=== PATIENT | female | born 1950 | race Caucasian/White ===

== ENCOUNTER → 2016-08-16 17:22 | Outpatient (CLI) | payer BC ==
[2014-06-04 10:39] VITALS: BMI 28.4
[~2016-08-16 17:22] MED LIST: CARAFATE1 G PO; HYDROCODONE-APA1 TAB PO; LOTENSIN40 MG PO; MIRALAX17 GM PO; PROTONIX40 MG PO; SOMA350 MG PO; ZOFRAN ODT4 MG/UDTAB PO
== END | disposition home or self-care (01) ==
LOC: D.MAMMO 10:00
DX: Z12.31 Encounter for screening mammogram for malignant neoplasm of breast (principal)

== ENCOUNTER → 2016-11-30 13:39 | Outpatient (CLI) | payer BC ==
[2014-06-04 10:39] VITALS: BMI 28.4
== END | disposition home or self-care (01) ==
LOC: D.CT 13:39
DX: R91.8 Other nonspecific abnormal finding of lung field (principal)

== ENCOUNTER → 2017-06-02 14:05 | Outpatient (CLI) | payer BC, MEDICARE ==
[2014-06-04 10:39] VITALS: BMI 28.4
== END | disposition home or self-care (01) ==
LOC: D.CT 14:05
DX: R93.8 Abnormal findings on diagnostic imaging of other specified body structures (principal)

== ENCOUNTER 2018-04-02 09:31 | Emergency (ER) | payer BC, MEDICARE ==
[~2018-04-02] VITALS: Ht 154.9 cm; Wt 65.9 kg
[2018-04-02 09:33] VITALS: Ht 154.9 cm; Wt 65.9 kg
[2018-04-02] MEDS ORDERED: [UNRECOGNIZED DRUG - OTHER] (09:37)
[2018-04-02 10:13] LABS: APPEARANCE HAZY (CLEAR); COLOR YELLOW (YELLOW)
[2018-04-02 10:14] LABS: BACTERIA MANY /hpf (NONE SEEN); BILIRUBIN NEGATIVE (NEGATIVE); GLUCOSE NEGATIVE (NEGATIVE); KETONE NEGATIVE (NEGATIVE); NITRITE NEGATIVE (NEGATIVE); PROTEIN NEGATIVE (NEGATIVE); RED CELLS - URINE 0-5 /hpf (0-5); WHITE CELLS - URINE OCC /hpf (0-5)
[2018-04-02 10:15] LABS: AMORPHOUS SEDIMENT <1+ /lpf (NONE SEEN); MUCUS <1+ /lpf (NONE SEEN)
[2018-04-02 10:20] LABS: BASOPHILS 0.1 % (0-2); EOSINOPHILS 0.8 % (0-7); HEMATOCRIT 49.2 % (36.0-48.0); HEMOGLOBIN 16.7 g/dL (12-16); IMMATURE GRANULOCYTES 0.3 % (0-5); LYMPHOCYTES 14.9 % (15-50); MCH 29.7 pg (26.0-34.0); MCHC 33.9 g/dL (31.0-37.0); MCV 87.5 fL (80.0-100.0); MEAN PLATELET VOLUME 9.9 fL (7.4-10.4); MONOCYTES 7.3 % (2-11); NEUTROPHILS 76.6 % (40-80); PLATELET COUNT 298 10x3/uL (130-400); RBC 5.62 10x6/uL (4.00-5.40); RDW 13.3 % (11.5-14.5); WBC 16.9 10x3/uL (4.8-10.8)
[2018-04-02 10:34] LABS: ALBUMIN 3.5 g/dL (3.4-5.0); ALKALINE PHOSPHATASE 122 U/L (46-116); ALT (SGPT) 48 U/L (10-68); BILIRUBIN - TOTAL 0.73 mg/dL (0.2-1.3); CALC OSMOLALITY 272 mosm/kg (275-300); CALCIUM 8.9 mg/dL (8.5-10.1); CARBON DIOXIDE 25.6 mmol/L (21.0-32.0); CHLORIDE - SERUM 100 mmol/L (98-107); CREATININE - SERUM 0.9 mg/dL (0.6-1.3); GLUCOSE 109 mg/dL (74-106); POTASSIUM - SERUM 4.4 mmol/L (3.5-5.1); PROTEIN - SERUM 8.3 g/dL (6.4-8.2); SODIUM 136 mmol/L (136-145); UREA NITROGEN 13 mg/dL (7-18); eGFR NON AFRICAN AMERICAN 66 mL/min (90-120)
[2018-04-02 10:37] LABS: LIPASE 91 U/L (73-393); TROPONIN-I < 0.017 ng/mL (0.000-0.060)
[2018-04-02 13:58] VITALS: BP 169/86
== END 2018-04-02 14:04 | disposition home or self-care (01) ==
LOC: D.ER 09:31
PROVIDERS: Family Medicine
DX: K52.9 Noninfective gastroenteritis and colitis, unspecified (principal); I10 Essential (primary) hypertension

== ENCOUNTER 2018-05-22 10:52 | Emergency (ER) | payer BC, MEDICARE ==
[2018-05-22 11:52] LABS: BASOPHILS 0.2 % (0-2); EOSINOPHILS 1.5 % (0-7); HEMOGLOBIN 16.5 g/dL (12-16); IMMATURE GRANULOCYTES 0.2 % (0-5); LYMPHOCYTES 21.5 % (15-50); MCH 29.6 pg (26.0-34.0); MCHC 33.7 g/dL (31.0-37.0); MCV 87.8 fL (80.0-100.0); MEAN PLATELET VOLUME 10.3 fL (7.4-10.4); MONOCYTES 7.9 % (2-11); NEUTROPHILS 68.7 % (40-80); PLATELET COUNT 320 10x3/uL (130-400); RBC 5.58 10x6/uL (4.00-5.40); RDW 13.6 % (11.5-14.5); WBC 12.4 10x3/uL (4.8-10.8)
[2018-05-22 12:10] LABS: ALBUMIN 3.9 g/dL (3.4-5.0); ALKALINE PHOSPHATASE 101 U/L (46-116); ALT (SGPT) 15 U/L (10-68); BILIRUBIN - TOTAL 0.44 mg/dL (0.2-1.3); CALC OSMOLALITY 269 mosm/kg (275-300); CALCIUM 9.5 mg/dL (8.5-10.1); CARBON DIOXIDE 28.3 mmol/L (21.0-32.0); CHLORIDE - SERUM 99 mmol/L (98-107); CREATININE - SERUM 0.8 mg/dL (0.6-1.3); GLUCOSE 94 mg/dL (74-106); POTASSIUM - SERUM 4.4 mmol/L (3.5-5.1); PROTEIN - SERUM 9.1 g/dL (6.4-8.2); SODIUM 135 mmol/L (136-145); UREA NITROGEN 13 mg/dL (7-18); eGFR NON AFRICAN AMERICAN 76 mL/min (90-120)
[2018-05-22 12:10] LABS: APPEARANCE CLEAR (CLEAR); BILIRUBIN NEGATIVE (NEGATIVE); COLOR YELLOW (YELLOW); EPITHELIAL CELLS OCC /hpf (0-5); GLUCOSE NEGATIVE (NEGATIVE); KETONE NEGATIVE (NEGATIVE); NITRITE NEGATIVE (NEGATIVE); PROTEIN NEGATIVE (NEGATIVE); RED CELLS - URINE OCC /hpf (0-5); SPECIFIC GRAVITY 1.025 (1.005-1.020); UROBILINOGEN NORMAL (NORMAL); WHITE CELLS - URINE NSEEN /hpf (0-5)
[2018-05-22 12:12] LABS: AMYLASE - SERUM 102 U/L (25-115); LIPASE 129 U/L (73-393)
[2018-05-22 12:14] LABS: TROPONIN-I < 0.017 ng/mL (0.000-0.060)
== END 2018-05-22 14:52 | disposition home or self-care (01) ==
LOC: D.ER 10:52
PROVIDERS: Family Medicine
DX: M54.5 Low back pain (principal); R10.32 Left lower quadrant pain; Z87.19 Personal history of other diseases of the digestive system; I10 Essential (primary) hypertension

== ENCOUNTER 2018-10-23 08:00 | Outpatient (CLI) | payer BC, MEDICARE ==
[2018-05-22 11:09] VITALS: BMI 28.4
[~2018-10-23 08:00] MED LIST changes: +[UNRECOGNIZED DRUG - OTHER]
== END 2018-10-23 09:00 | disposition home or self-care (01) ==
LOC: D.MAMMO 08:00
PROVIDERS: ATTEND Emergency Medicine
DX: Z12.31 Encounter for screening mammogram for malignant neoplasm of breast (principal)

== ENCOUNTER → 2019-02-13 11:56 | Outpatient (CLI) | payer BC, MEDICARE ==
[2018-05-22 11:09] VITALS: BMI 28.4
== END | disposition home or self-care (01) ==
LOC: D.HCCARDIO 11:56
PROVIDERS: ATTEND Internal Medicine Cardiovascular Disease
DX: I20.9 Angina pectoris, unspecified (principal)

== ENCOUNTER 2019-05-28 11:24 | Outpatient (CLI) | payer BC, MEDICARE ==
[~2019-05-28] VITALS: Ht 154.9 cm; Wt 68.2 kg
--- NOTE | ~2019-05-28 | HEMODYNAMI ---
PATIENT:DANE SANTIAGO MEDICAL RECORD: [id number] : 54 LOCATION:[facility] ADMISSION DATE: 05/28/19 Generatedon:05/28/201914:08 Patient name: DANE SANTIAGO Patient #: [id number] SSN: [id number] : 1950 Date of study: 05/28/2019 Page: Of Hemodynamic Procedure Report Patient Data Patient Demographics Procedure consent was obtained First Name: DANE Gender: Female Last Name: PAMELA : 1950 Middle Initial: D Age: 69 year(s) Patient #: [id number] Race: Unknown SSN: [id number] Additional ID: [id number] Contact details [address]: [address] [place] [address] TRAIL State: [place] City: [place] Zip code: [address] Past Medical History Allergies Allergen Reaction Date Comments Reported Other allergy 05/28/2019 See List Admission Admission Data Admission Date: 05/28/2019 Admission Time: 11:24 Arrival Date: 05/28/2019 Arrival Time: 0:00 Admit Source: Other Insurance Payor: Private health insurance, Medicare [facility] #: [id number] Height (in.): 60.63 BSA: 1.66 (m2) Height (cm.): 154 BMI: 28.67 (kg/m2) Weight (lbs.): 149.92 Weight (kg.): 68 Lab Results Lab Result Date: 05/28/2019 Lab Result Time: 0:00 Biochemistry Name Units Result Min Max BUN mg/dl 13 --(--*-)-- 7 18 Creatinine mg/dl 0.6 --(*---)-- 0.6 1.3 CBC Name Units Result Min Max Hemoglobin g/dl 15.5 --(-*--)-- 13.5 17.5 Procedure Procedure Types Cath Procedure Diagnostic Procedure LHC LHC w/Coronaries Sedation Charges Moderate Sedation up to 15 minutes Procedure Description Procedure Date Procedure Date: 05/28/2019 Procedure Start Time: 13:56 Procedure End Time: 14:06 Procedure Staff Name Function Jeremy Sánchez MD Performing Physician Ying Olivas RT Monitor Michael Mohamud RN Nurse Sydney Maldonado RT Scrub Indication Chest pain Dyspnea Procedure Data Cath Procedure Fluoroscopy Diagnostic fluoroscopy Total fluoroscopy Time: 1.9 time: 1.9 min min Diagnostic fluoroscopy Total fluoroscopy dose: 398 dose: 398 mGy mGy Contrast Material Contrast Material Type Amount (ml) Isovue 300 51 Entry Location Entry Primary Successful Side Size Upsize Upsize Entry Closure Sandy ccessful Closure Location (Fr) 1 (Fr) 2 (Fr) Remarks Device Remarks Radial Right 6 Fr Mechanical artery Short Compression Estimated blood loss: 10 ml Diagnostic catheters Device Type Used For End Catheter Placement DIAGNOSTIC [place] 110cm 5 Procedure Fr catheter ([id number]) Procedure Complications No complications Procedure Medications Medication Administration Route Dosage 0.9% NaCl I.V. 100 ml/hr Oxygen etCO2 Nasal cannula 2 l/min Heparin Flush Bag added to field 2 bags (1000units/500ml NS) Bupivacaine 0.5% added to field 10 ml Radial Cocktail added to field 1 syringe (Verapamil 2mg/Nitro 400mcg/Heparin 1500units) Versed I.V. 2 mg Fentanyl I.V. 100 mcg Benadryl I.V. 50 mg Hemodynamics Rest BSA: 1.66 (m2) HGB: 15.5 (g/dl) O2 Consumption: Estimated: 162.22 (ml/min) O2 Co nsumption indexed: Estimated:97.72 (ml/min/m) Heart Rate: 83 (bpm) Pressure Samples Time Site Value (mmHg) Purpose Heart Use Rate(bpm) 14:01 LV 153/-6,9 Snapshot 83 14:01 AO 156/79(115) Pullback 83 14:01 LV 160/-8,15 Pullback 83 Gradients Valve Time Site 1 Site 2 Mean SEP/DFP Peak To Heart Use (mmHg) (sec/min) Peak Rate (mmHg) (bpm) Aortic 14:01 LV AO 9 14 4 83 160/-8,15 156/79(115) Calculations Valve P-P Mean Valve Index Valve Source Name Gradient Area Flow (cm2) Aortic 4 9 4 9 Snapshots Pre Cath Intra NCS Post Cath Vital Signs Time Heart Resp SPO2 etCO2 NIBP (mmHg) Rhythm Pain Sedation Rate (ipm) (%) (mmHg) Status Level (bpm) 13:49:55 85 17 95 39.5 147/122(139) NSR 0 (11) 10(A) , No pain 13:54:11 79 16 94 41 163/79(125) NSR 0 (11) 10(A) , No pain 13:58:31 84 11 96 40.3 176/85(120) NSR 0 (11) 10(A) , No pain 14:02:49 81 14 93 40.3 141/69(110) NSR 0 (11) 9(A) , No pain 14:07:05 83 13 93 40.3 149/76(134) NSR 0 (11) 9(A) , No pain Medications Time Medication Route Dose Verified Delivered Reason Notes Ef fectiveness by by 13:47:43 Benadryl I.V. 50 mg Michael Michael Per Lorigan Lorigan physician RN RN 13:47:43 0.9% NaCl I.V. 100 Michael Michael Per ml/hr Lorigan Lorigan physician RN RN 13:47:53 Oxygen etCO2 2 l/min Michael Michael for low Nasal Lorigan Lorigan 02 sats cannula RN RN 13:48:03 Heparin Flush added 2 bags Michael Michael used for Bag to Lorigan Lorigan procedure (1000units/500ml RN RN NS) 13:48:28 Bupivacaine 0.5% added 10 ml Michael Michael used for to Lorigan Lorigan procedure RN RN 13:48:40 Radial Cocktail added 1 Michael Michael used for (Verapamil to syringe Lorigan Lorigan procedure 2mg/Nitro RN RN 400mcg/Heparin 1500units) 13:57:56 Versed I.V. 2 mg Michael Michael for Lorigan Lorigan sedation RN RN 13:58:05 Fentanyl I.V. 100 mcg Michael Michael for Lorigan Lorigan sedation RN supervisor pole yard Log Time Note 13:33:52 Admit Source: Other 13:33:54 Arrival Date: 05/28/2019 12:00:00 AM 13:34:16 Insurance Payor : Private health insurance, Medicare 13:34:26 Patient Height : 60.63 inches 13:34:35 Patient Weight : 149.92 lbs 13:35:35 Lab Result : BUN 13 mg/dl 13:35:35 Lab Result : Hemoglobin 15.5 g/dl 13:35:35 Lab Result : Creatinine 0.6 mg/dl 13:35:45 Diagnostic Cath Status : Elective 13:36:23 Indication : Chest pain 13:36:28 Indication : Dyspnea 13:37:15 ACC Patient presents with Stable Angina CCS Anginal Class 2--Slight limitation of ordinary activity. 13:37:19 Procedure Status Elective Heart Cath (OP). 13:37:28 Michael Mohamud RN sent for patient. Start room use. 13:37:30 Time tracking: Regular hours (M-F 7:00 - 5:00) 13:37:35 Plan of Care:Hemodynamics will remain stable., Cardiac rhythm will remain stable., Comfort level will be maintained., Respiratory function will remain adequate., Patient/ family verbilizes understanding of procedure., Procedure tolerated without complication., Recovers from procedure without complications.. 13:37:41 Patient received from Pre/Post Procedure Room to [facility] [place] 2 Alert and oriented. Tansferred to table in Supine position. 13:37:44 Signed procedure consent form obtained from patient. 13:37:45 Warm blankets applied, and orly hugger turned on for patient comfort. 13:37:46 Correct patient and procedure confirmed by team. 13:37:47 ECG and BP/O2 sat monitors applied to patient. 13:38:13 H&P Date Dictated: 05/07/2019 Within 30 days and on chart., H&P Addendum completed by physician on day of procedure. (MUST COMPLETE FOR ALL OUTPATIENTS). 13:38:16 Pre-procedure instructions explained to patient. 13:38:21 Family in waiting room. 13:38:22 Patient NPO since Midnight. 13:38:35 Patient allergic to Other allergySee List 13:38:38 Is the patient allergic to Iodine/contrast media? No. 13:38:39 Was the patient premedicated? Yes 13:38:41 Is patient on blood thinner?No 13:38:46 Patient diabetic? No. 13:38:51 Snore? No 13:38:52 Sleep apnea? No 13:38:56 Dentures? No ? 13:39:05 Patient pain scale 0/10 .. 13:39:14 IV patent on arrival in left forearm with 0.9% NaCl at KVO. 13:39:21 Lab results completed and on chart. 13:39:26 Stress Test: yes; normal ? 13:39:30 Alarms reviewed by R. N. 13:39:34 Right groin area was prepped with chlora-prep and draped in sterile fashion 13:39:36 Sharps counted by scrub and verified by R.N. 13:47:43 Benadryl 50 mg I.V. was administered by Michael Mohamud RN; Per physician; Verbal order read back and verified. 13:47:43 0.9% NaCl 100 ml/hr I.V. was administered by Michael Mohamud RN; Per physician; Verbal order read back and verified. 13:47:53 Oxygen 2 l/min etCO2 Nasal cannula was administered by Michael Mohamud RN; for low 02 sats; Verbal order read back and verified. 13:48:03 Heparin Flush Bag (1000units/500ml NS) 2 bags added to field was administered by Michael Mohamud RN; used for procedure; Verbal order read back and verified. 13:48:28 Bupivacaine 0.5% 10 ml added to field was administered by Michael Mohamud RN; used for procedure; Verbal order read back and verified. 13:48:40 Radial Cocktail (Verapamil 2mg/Nitro 400mcg/Heparin 1500units) 1 syringe added to field was administered by Michael Mohamud RN; used for procedure; Verbal order read back and verified. 13:48:47 Vital chart was started 13:50:47 Physician arrived 13:50:48 --------ALL STOP TIME OUT------ 13:50:49 Final Timeout: patient, procedure, and site verified with staff and physician. All members of the team are in agreement. 13:50:51 Right Radial & Right Groin site verified by team. 13:50:57 Fire Safety Assessment: A--An alcohol-based skin anteseptic being used preoperatively., C--Open oxygen or nitrous oxide is being used., D--An ESU, laser, or fiber-optic light is being used. 13:51:00 Physical assessment completed. ASA score P 2 - A patient with mild systemic disease as per Jeremy Sánchez MD. 13:51:19 2) 60-89 Mildly reduced kidney function, and other findings (as for stage 1) point to kidney disease. 13:51:33 Maximum allowable contrast dose (3.7 X eGFR X 0.75)183 ml. 13:51:43 Sedation plan: IV Moderate Sedation Medication:Versed, Fentanyl 13:51:57 Use device set Radial Dx or PCI 13:52:01 ACIST Syringe (94528) opened to sterile field. 13:52:01 Medline Cath Pack ([id number]) opened to sterile field. 13:52:02 Bag Decanter (2002S) opened to sterile field. 13:52:02 ACIST Hand Control (33913) opened to sterile field. 13:52:02 ACIST Manifold (91520) opened to sterile field. 13:52:05 MBrace Wrist Support ([id number]) opened to sterile field. 13:52:06 NEEDLE Cook 21G 4cm Radial (Q62846) opened to sterile field. 13:52:07 EMERALD Guide Wire (502-039) opened to sterile field. 13:52:08 SHEATH 6FR RAIN (1948126) opened to sterile field. 13:55:08 Procedure started. 13:55:09 Full Disclosure recording started 13:56:36 Local anesthetic to right radial artery with Lidocaine 2% by Jeremy Sánchez MD.INITIAL ACCESS ONLY 13:57:32 A 6 Fr Short sheath was inserted into the Right Radial artery 13:57:56 Versed 2 mg I.V. was administered by Michael Mohamud RN; for sedation; Verbal order read back and verified. 13:58:05 Fentanyl 100 mcg I.V. was administered by Michael Mohamud RN; for sedation; Verbal order read back and verified. 13:59:01 A DIAGNOSTIC [place] 110cm 5 Fr catheter (670038) was advanced over the wire and used for Procedure. 13:59:54 LV angiography performed. 13:59:58 LV gram done using ROB 14:00:01 Zero performed for pressure channel P1 14:01:16 LV hemodynamics recorded. 14:01:22 EF : 60 % 14:02:27 LCA angiography performed. 14:03:28 RCA angiography performed. 14:04:07 Catheter removed. 14:04:29 Sheath removed intact; hemostasis achieved with Mechanical Compression to the Right Radial artery. 14:04:35 Procedure ended.(Physican Out) 14:04:53 Fluoroscopy time 01.90 minutes. 14:04:58 Flurop Dose total: 398 14:04:58 Fluoroscopy dose: 398 mGy 14:05:03 Dose Area Product 83621 mGy/cm. 14:05:07 Contrast amount:Isovue 300 51ml. 14:05:11 Maximum allowable dose exceeded? No. 14:05:12 Sharps counted by scrub and verified by R.N. 14:05:15 [place] band inflated with 10cc of air. 14:05:16 Insertion/operative site no bleeding no hematoma. 14:05:20 Post Procedure Pulses reassessed and unchanged 14:05:36 Post-procedure physical assessment completed. ASA score P 2 - A patient with mild systemic disease as per Jeremy Sánchez MD. 14:05:40 Post procedure rhythm: unchanged. 14:05:44 Estimated blood loss: 10 ml 14:05:47 Post procedure instruction explained to patient.Patient verbalizes understanding. 14:06:05 Procedure type changed to Cath procedure, Diagnostic procedure, LHC, LHC w/Coronaries, Sedation Charges, Moderate Sedation up to 15 minutes 14:06:10 Procedure and supply charges have been captured, reviewed, submitted and are correct. 14:06:36 Procedure Complication : No complications 14:06:39 Vital chart was stopped 14:06:42 Operative report dictated upon procedure completion. 14:06:42 See physician's report for complete and final results. 14:06:44 Report given to Pre/Post Procedure Room. 14:06:47 Patient transfered to Pre/Post Procedure Room with Stretcher. 14:06:49 Procedure ended. 14:06:49 Full Disclosure recording stopped 14:07:28 End room use (Document Last) 14:08:14 End room use (Document Last) Device Usage Item Name Manufacture Quantity Catalog Hospital Part Current Minima l Lot# / Number Charge Number Stock Stock Serial# Code ACIST Acist 1 [id number] 113936 [id number] 20 Syringe Glassy Pro (30963) Systems Inc Medline Medline 1 [id number] 350152 43946 333462 5 Cath Pack ([id number]) Bag Microtek 1 910303 82752 835355 5 Decanter Medical Inc. () ACIST Hand Acist 1 42592 949066 895403 020387 5 Control Medical (25348) Systems Inc ACIST Acist 1 61941 344489 175501 605366 5 Manifold Medical (41204) Systems Inc MBrace Advanced 1 [id number] 005428 66683 155135 5 Wrist Vascular Support Dynamics ([id number]) NEEDLE Cook Cook Medical 1 [id number] 267025 194904 114012 5 21G 4cm Radial (B06651) EMERALD Cardinal 1 502-515 797728 027481 561173 5 Guide Wire Health (617-318) SHEATH 6FR Cardinal 1 [id number] 727609 6120842 794615 [address] [facility] (8644574) DIAGNOSTIC Terumo 1 40-4435 842471 039609 498023 5 [place] 110cm 5 Fr catheter (969506) Signature Audit Cascade Stage Time Signature Unsigned Intra-Procedure 05/28/2019 Ying Olivas 2:07:13 PM RT(R) Intra-Procedure 05/28/2019 Michael 2:08:14 PM [place] RN Intra-Procedure 05/28/2019 Jeremy Sánchez MD 2:08:36 PM Signatures Performing Physician : Signature : Jeremy Sánchez MD Date : Time : Monitor : Ying Olivas Signature : RT Date : Time : Nurse : Michael Mohamud Signature : RN Date : Time : [facility] [address] [place] [address]
[2019-05-28] MEDS ORDERED: ZOFRAN4 MG PO (12:07)
[2019-05-28] MEDS ORDERED: PROPRANOLOL HCL20 MG PO (12:08)
[2019-05-28] MEDS ORDERED: HYDROCODON-ACE1 EA10 PO (12:09)
[2019-05-28 12:33] VITALS: BP 172/84; Ht 154.9 cm; Wt 68.2 kg
[2019-05-28 12:42] LABS: BASOPHILS 0.2 % (0-2); EOSINOPHILS 2.5 % (0-7); HEMATOCRIT 47.2 % (36.0-48.0); HEMOGLOBIN 15.5 g/dL (12-16); IMMATURE GRANULOCYTES 0.2 % (0-5); LYMPHOCYTES 22.4 % (15-50); MCHC 32.8 g/dL (31.0-37.0); MCV 88.4 fL (80.0-100.0); MEAN PLATELET VOLUME 9.6 fL (7.4-10.4); MONOCYTES 10.2 % (2-11); NEUTROPHILS 64.5 % (40-80); PLATELET COUNT 315 10x3/uL (130-400); RBC 5.34 10x6/uL (4.00-5.40); RDW 13.1 % (11.5-14.5); WBC 9.3 10x3/uL (4.8-10.8)
[2019-05-28 13:24] LABS: ANION GAP 10.8 mmol/L (8-16); CALCIUM 9.3 mg/dL (8.5-10.1); CARBON DIOXIDE 27.2 mmol/L (21.0-32.0); CREATININE - SERUM 0.9 mg/dL (0.6-1.3); LDL-HDL RATIO 2.5 ratio (1.5-3.5)
--- NOTE | 2019-05-28 14:20 | NUR ---
PT RECEIVED VIA STRETCHER FROM [employer] TECHNICIAN FOR RECOVERY. PT DROWSY BUT VERBALLY AROUSABLE. PT DENIES PAIN OR DISCOMFORT. PT PLACED ON CARDIAC MONITORS AND O2 VIA NC AT 2L. HR NSR RATE 71, BP 164/77, RR 17, SAT 96. ZYPHER BAND AND IMMOBILIZER TO R WRIST, DRESSING CDI NO BLEEDING OR S/S HEMATOMA NOTED. ARM PINK AND WARM, CAP REFILL BRISK. IV PATENT INFUSING VIA ORDERS. DR DANG AT DISCUSSING PLAN OF CARE AND PROCEDURE RESULTS W PT AND FAMILY. CALL LIGHT IN REACH
--- NOTE | 2019-05-28 14:43 | NUR ---
PT SLEEPING COMFORABLY. ZBAND AND IMMOBILIZER IN PLACE, DRESSING REMAINS CDI NO BLEEDING OR S/S HEMATOMA NOTED. HR 68, BP 157/76, RR 16, SAT 90. CALL LIGHT IN REACH, DAUGHTER AT BEDSIDE.
--- NOTE | 2019-05-28 15:30 | NUR ---
PT SLEEPING, Z BAND IN PLACE NO BLEEDING OR S/S HEMATOMA NOTED. VSS. CALL LIGHT IN REACH, DAUGHTER AT BS.
--- NOTE | 2019-05-28 15:45 | NUR ---
5CC AIR REMOVED FROM Z BAND, NO BLEEDING OR S/S HEMATOMA NOTED. SANDWICH TRAY AND DRINK SERVED. O2 REMOVED, HOB ELEVATED.
--- NOTE | 2019-05-28 16:05 | NUR ---
3 ADD'L CC AIR REMOVED FROM Z BAND, NO BLEEDING OR S/S HEMATOMA NOTED. IV REMOVED W CATH INTACT. MONITORS REMOVED AND PT UP TO DRESS FOR DISCHARGE. 1610 PT AMBULATED TO BR, VOIDING W/O DIFFICULITY.
--- NOTE | 2019-05-28 16:26 | NUR ---
1620 Z BAND AND REMAINING AIR REMOVED. 2X2 AND TEGADERM DRESSING APPLIED. NO BLEEDING OR S/S HEMATOMA NOTED. DISCHARGE INSTRUCTIONS REVIEWED W PT AND DAUGHTER, BOTH VERBALIZED UNDERSTANDING. PT DISCHARGED VIA WC TO IN PRIVATE VEHICLE, PT HAD ALL BELONGINGS AND DISCHARGE INFORMATION
== END 2019-05-28 16:25 | disposition home or self-care (01) ==
LOC: D.CATH 11:24
PROVIDERS: ATTEND Internal Medicine Cardiovascular Disease
DX: I20.0 Unstable angina (principal); R06.02 Shortness of breath; I10 Essential (primary) hypertension; R06.00 Dyspnea, unspecified; R07.9 Chest pain, unspecified

== ENCOUNTER 2020-09-15 20:05 | Outpatient (CLI) | payer BC, MEDICARE ==
[2019-05-28 12:33] VITALS: BMI 28.4
[~2020-09-15 20:05] MED LIST changes: +HYDROCODON-ACE1 EA10 PO; +PROPRANOLOL HCL20 MG PO; +ZOFRAN4 MG PO
== END 2020-09-15 23:59 | disposition home or self-care (01) ==
LOC: D.MAMMO 20:05
PROVIDERS: ATTEND Family Medicine
DX: Z12.31 Encounter for screening mammogram for malignant neoplasm of breast (principal)